=== PATIENT | female | born 1970 | race Caucasian/White ===

== ENCOUNTER 2019-10-26 06:29 | Inpatient (IN) | payer OTHER ==
[~2019-10-26] VITALS: Ht 121.9 cm; Wt 5.0 kg
[~2019-10-26 06:29] MED LIST: ALLEGRA ODT30 MG; BACLOFEN10 MG; BENZONATATE100 MG; BUTALB-ACETAMI1 EACH; CLARITIN5 MG; CLOTRIMAZOLE10 MG; GABAPENTIN800 MG; GLUCOPHAGE XR500 MG; HUMULIN 70/30 V10 ML SQ; LASIX40 MG; MONTELUKAST SOD10 MG; NASONEX17 GM NS; PREDNISOLONE5 MG PO; PREDNISONE10 MG; PREDNISONE10 MG PO; PROBIOTIC1 EAC1; RIZATRIPTAN5 M1; SYMBICORT 16010.2 GM IH; SYNTHROID100 MCG; TIZANIDINE HCL4 M1; TROKENDI XR100 MG; ULTRACET; ULTRAM50 MG; ZYRTEC10 MG PO
== END 2019-10-30 20:10 | disposition left against medical advice (07) | DRG 178 ==
LOC: ER 06:29 → ICU 13:17 → ICU-2 13:17 → ICU 10-29 14:08
PROVIDERS: ADMIT Internal Medicine; ATTEND Internal Medicine
PROC: BB24ZZZ Computerized Tomography (CT Scan) of Bilateral Lungs (ICD-10-PCS; principal; 2019-10-26)
PROC: B24BZZZ Ultrasonography of Heart with Aorta (ICD-10-PCS; 2019-10-26)
PROC: B54DZZZ Ultrasonography of Bilateral Lower Extremity Veins (ICD-10-PCS; 2019-10-26)
PROC: 4A033R1 Measurement of Arterial Saturation, Peripheral, Percutaneous Approach (ICD-10-PCS; 2019-10-26)
PROC: 3E0F7GC Introduction of Other Therapeutic Substance into Respiratory Tract, Via Natural or Artificial Opening (ICD-10-PCS; 2019-10-26)
PROC: 0T9B70Z Drainage of Bladder with Drainage Device, Via Natural or Artificial Opening (ICD-10-PCS; 2019-10-26)
PROC: BW28ZZZ Computerized Tomography (CT Scan) of Head (ICD-10-PCS; 2019-10-27)
PROC: 8E0ZXY6 Isolation (ICD-10-PCS; 2019-10-27)
PROC: CB121ZZ Planar Nuclear Medicine Imaging of Lungs and Bronchi using Technetium 99m (Tc-99m) (ICD-10-PCS; 2019-10-28)
PROC: BW21Y0Z Computerized Tomography (CT Scan) of Abdomen and Pelvis using Other Contrast, Unenhanced and Enhanced (ICD-10-PCS; 2019-10-29)
DX: J15.211 Pneumonia due to Methicillin susceptible Staphylococcus aureus (principal); J90 Pleural effusion, not elsewhere classified; L03.115 Cellulitis of right lower limb; N39.0 Urinary tract infection, site not specified; E27.40 Unspecified adrenocortical insufficiency; J98.11 Atelectasis; L03.311 Cellulitis of abdominal wall; I31.3 Pericardial effusion (noninflammatory); I82.443 Acute embolism and thrombosis of tibial vein, bilateral; I96 Gangrene, not elsewhere classified; B95.61 Methicillin susceptible Staphylococcus aureus infection as the cause of diseases classified elsewhere; B96.1 Klebsiella pneumoniae [K. pneumoniae] as the cause of diseases classified elsewhere; E11.65 Type 2 diabetes mellitus with hyperglycemia; L89.212 Pressure ulcer of right hip, stage 2; E66.01 Morbid (severe) obesity due to excess calories; E03.8 Other specified hypothyroidism; D50.8 Other iron deficiency anemias; G47.33 Obstructive sleep apnea (adult) (pediatric); R91.8 Other nonspecific abnormal finding of lung field; R09.02 Hypoxemia; R06.02 Shortness of breath; Z03.818 Encounter for observation for suspected exposure to other biological agents ruled out; Z79.4 Long term (current) use of insulin; Z79.01 Long term (current) use of anticoagulants